=== PATIENT | male | born 1945 | race Caucasian/White ===

== ENCOUNTER 2023-05-31 09:51 | Outpatient (CLI) | payer MEDICARE, OTHER | END 2023-05-31 09:52 | disposition home or self-care (01) | LOC: BICMAMMO 09:51 | PROVIDERS: ATTEND Family Medicine | DX: Z13.820 Encounter for screening for osteoporosis (principal); M85.851 Other specified disorders of bone density and structure, right thigh | CPT/HCPCS: 77080 ==